=== PATIENT | male | born 1940 | race Caucasian/White ===

== ENCOUNTER → 2017-12-19 | Outpatient (CLI) | payer OTHER ==
[2017-12-19 18:11] LABS: BLOOD UREA NITROGEN 23 mg/dl (7-18); CALCIUM 9.2 mg/dl (8.5-10.1); CARBON DIOXIDE 28 mmol/L (21-32); CREATININE 1.03 mg/dl (0.60-1.40); GLUCOSE 86 mg/dl (70-99); SODIUM 138 mmol/L (136-145)
== END | disposition home or self-care (01) ==
LOC: C.LABMFLN 12:45
PROVIDERS: ATTEND Family Medicine
DX: Z13.1 Encounter for screening for diabetes mellitus (principal)

== ENCOUNTER → 2018-03-13 | Outpatient (CLI) | payer OTHER, BC | END | disposition home or self-care (01) | LOC: C.PATHSPEC 17:00 | PROVIDERS: ATTEND Urology | DX: R97.20 Elevated prostate specific antigen [PSA] (principal); N40.2 Nodular prostate without lower urinary tract symptoms; C61 Malignant neoplasm of prostate ==

== ENCOUNTER → 2018-04-05 | Outpatient (CLI) | payer OTHER, BC ==
--- NOTE | 2018-04-05 14:04 | DIAGNOSTIC IMAGING REPORT ---
BONE SCAN WHOLE BODY HISTORY: Prostate carcinoma C61 Prostate cancer RADIOTRACER: 25.6 mCi Tc-99m MDP STUDY/IMAGES: Planar anterior and posterior whole body imaging was performed 3 hours following the intravenous administration of radiotracer. COMPARISON: None. FINDINGS: Normal activity characteristics of the kidneys bilaterally. Minimal degenerative activity of the shoulders hips knees and ankles. No evidence for metastatic bone disease. No abnormal soft tissue activity. IMPRESSION: 1. Study is negative for metastatic bone disease. 2. Minimal scattered degenerative activity of the joints. The above report was generated using voice recognition software. It may contain grammatical, syntax or spelling errors. Electronically signed by: Tima Slater M.D. 04/05/2018 2:03 PM Dictated Date/Time: 04/05/2018 2:02 PM
== END | disposition home or self-care (01) ==
LOC: C.NUCL 10:12
PROVIDERS: ATTEND Urology
DX: C61 Malignant neoplasm of prostate (principal)